=== PATIENT | female | born 1975 | race Hispanic/Latino ===

== ENCOUNTER → 2020-04-25 | Outpatient (CLI) | payer OTHER ==
[~2020-04-25] MED LIST: BENTYL10 MG PO; BENTYL20 MG PO; CIPRO500 MG PO; COVID-19 VACC, MRNA(MODERNA)/PF 100 MCG/0.5 ML VIAL IM ONE; JANUVIA100 MG PO; LEVOTHYROXINE50 MCG PO; METFORMIN HCL500 MG PO; NEXIUM40 MG PO
== END | disposition home or self-care (01) ==
LOC: VACCPMC 19:00
DX: Z23 Encounter for immunization (principal); Z20.822 Contact with and (suspected) exposure to COVID-19

== ENCOUNTER → 2020-05-28 | Outpatient (CLI) | payer OTHER | END | DRG 951 | LOC: VACCPMC 07:29 | DX: Z23 Encounter for immunization (principal); Z20.822 Contact with and (suspected) exposure to COVID-19 | CPT/HCPCS: 0012A; 91301 ==

== ENCOUNTER 2021-02-27 03:06 | Emergency (ER) | payer OTHER ==
[~2021-02-27] VITALS: Ht 152.4 cm; Wt 81.6 kg
[~2021-02-27 03:06] MED LIST changes: -COVID-19 VACC, MRNA(MODERNA)/PF 100 MCG/0.5 ML VIAL IM ONE
[2021-02-27] MEDS ORDERED: ZYRTEC-D TABLE1 EACH PO (03:40)
[2021-02-27] MEDS ORDERED: AFRIN30 ML INH (03:40)
[2021-02-27] MEDS ORDERED: ACETAMINOPHEN-1 EAC4 PO (03:40)
[2021-02-27] MEDS ORDERED: DIPHENHYDRAMINE HCL 25 MG CAP PO ONE (03:45)
[2021-02-27 03:53] VITALS: BP 132/76
[2021-02-27] MEDS ORDERED: DIPHENHYDRAMINE HCL 25 MG CAP ONE (04:01)
== END 2021-02-27 03:53 | disposition home or self-care (01) ==
LOC: FSED 03:30
DX: J30.9 Allergic rhinitis, unspecified (principal); R09.81 Nasal congestion; E11.9 Type 2 diabetes mellitus without complications; E03.9 Hypothyroidism, unspecified
CPT/HCPCS: 99282

== ENCOUNTER 2021-07-20 20:59 | Emergency (ER) | payer OTHER ==
[~2021-07-20] VITALS: Ht 152.4 cm; Wt 81.6 kg
[~2021-07-20 20:59] MED LIST changes: +ACETAMINOPHEN-1 EAC4 PO; +AFRIN30 ML INH; +ZYRTEC-D TABLE1 EACH PO
[2021-07-20] MEDS ORDERED: IBUPROFEN 600 MG TAB PO STA (21:42)
[2021-07-20] MEDS ORDERED: IBUPROFEN600 MG PO (22:48)
[2021-07-20] MEDS ORDERED: MECLIZINE HCL12.5 MG PO (22:48)
[2021-07-20] MEDS ORDERED: MEDROL4 M2 PEG (22:52)
== END 2021-07-20 23:00 | disposition home or self-care (01) ==
LOC: ER 21:11
DX: R51.9 Headache, unspecified (principal); J32.9 Chronic sinusitis, unspecified; E11.9 Type 2 diabetes mellitus without complications; E03.9 Hypothyroidism, unspecified
CPT/HCPCS: 70450; 99283

== ENCOUNTER 2023-05-05 10:47 | Emergency (ER) | payer OTHER ==
[~2023-05-05] VITALS: Ht 152.4 cm; Wt 79.4 kg
[~2023-05-05 10:47] MED LIST changes: +CEFDINIR300 MG PO; +IBUPROFEN200 MG PO; +IBUPROFEN600 MG PO; +MECLIZINE HCL12.5 MG PO; +MEDROL4 M2 PEG
[2023-05-05] MEDS ORDERED: ACETAMINOPHEN 325 MG TAB ONE (11:01)
[2023-05-05 11:02] VITALS: O2SAT 100
[2023-05-05] MEDS ORDERED: ACETAMINOPHEN 325 MG TAB PO ONE (11:15)
[2023-05-05] MEDS ORDERED: PAXLOVID 300-11 EACH PO (11:52)
== END 2023-05-05 12:02 | disposition home or self-care (01) ==
LOC: FSED 11:03
DX: R50.9 Fever, unspecified (principal); U07.1 COVID-19; R09.81 Nasal congestion; R51.9 Headache, unspecified; E11.9 Type 2 diabetes mellitus without complications; E03.9 Hypothyroidism, unspecified
CPT/HCPCS: 0223U; 83518; 87400; 99282

== ENCOUNTER 2024-02-11 18:02 | Emergency (ER) | payer OTHER ==
[~2024-02-11] VITALS: Ht 152.4 cm; Wt 79.4 kg
[~2024-02-11 18:02] MED LIST changes: +BROMFED DM COU118 ML PO; +PAXLOVID 300-11 EACH PO
[2024-02-11 18:14] VITALS: PULSE 79; RESP 18; TEMP 98.3; O2SAT 99
[2024-02-11] MEDS ORDERED: DEXAMETHASONE PHOS 4MG/ML 5ML MULTIDOSE VIAL INJ ONE (18:30)
[2024-02-11] MEDS ORDERED: KETOROLAC TROME10 MG PO (18:38)
[2024-02-11] MEDS: DEXAMETHASONE SOD PHOS INJ 4 MG/ML SDV IM ONE (18:42)
[2024-02-11] MEDS ORDERED: CYCLOBENZAPRINE5 MG PO (18:42)
[2024-02-11] MEDS: KETOROLAC TROMETHAMINE 60 MG/2 ML VIAL IM ONE (18:43)
== END 2024-02-11 19:00 | disposition home or self-care (01) ==
LOC: FSED 18:12
DX: M25.511 Pain in right shoulder (principal); M77.8 Other enthesopathies, not elsewhere classified; E11.9 Type 2 diabetes mellitus without complications; E03.9 Hypothyroidism, unspecified
CPT/HCPCS: 99282; J1100; J1885

== ENCOUNTER 2025-02-09 08:27 | Emergency (ER) | payer OTHER ==
[~2025-02-09] VITALS: Ht 152.4 cm; Wt 76.7 kg
[~2025-02-09 08:27] MED LIST changes: +CYCLOBENZAPRINE5 MG PO; +KETOROLAC TROME10 MG PO
[2025-02-09 08:47] VITALS: TEMP 99.7
[2025-02-09] MEDS: KETOROLAC TROMETHAMINE 30 MG/ML VIAL IV STA (09:42)
[2025-02-09] MEDS: ONDANSETRON HCL INJ 2MG/ML 2ML 2 MG/ML VIAL IV STA (09:42)
[2025-02-09] MEDS: SODIUM CHLORIDE 0.9% 1000ML 1,000 ML IV SCH (09:42)
[2025-02-09] MEDS: FAMOTIDINE 20 MG/2 ML VIAL IV STA (09:42)
[2025-02-09] MEDS ORDERED: ONDANSETRON ODT4 MG PO (10:51)
[2025-02-09 11:05] VITALS: PULSE 89; RESP 16; O2SAT 96
== END 2025-02-09 11:05 | disposition home or self-care (01) ==
LOC: FSED 08:47
DX: R11.2 Nausea with vomiting, unspecified (principal); R19.7 Diarrhea, unspecified; E11.65 Type 2 diabetes mellitus with hyperglycemia; E03.9 Hypothyroidism, unspecified; M54.9 Dorsalgia, unspecified; G89.29 Other chronic pain; Z11.52 Encounter for screening for COVID-19
CPT/HCPCS: 0223U; 80053; 85025; 87400; 96374; 96375; 99284; J1308; J1885; J2405; J7030